=== PATIENT | female | born 1990 | race Asian ===

== ENCOUNTER 2023-08-30 19:47 | Emergency (ER) | payer SELFPAY ==
--- NOTE | ~2023-08-30 | XR_ITS ---
EXAMINATION: XR CHEST CLINICAL INFORMATION: Shortness of breath COMPARISON: None available. TECHNIQUE: Frontal view of the chest was obtained. FINDINGS: No significant abnormality is noted involving the heart, lungs, mediastinum, bony thorax or soft tissues. XR/XR chest 1V IMPRESSION: Unremarkable examination.
--- NOTE | 2023-08-30 19:54 | ECG_ITS ---
Test Reason : LEFT ARM PAIN Blood Pressure : / mmHG Vent. Rate : 095 BPM Atrial Rate : 095 BPM P-R Int : 150 ms QRS Dur : 086 ms QT Int : 368 ms P-R-T Axes : 054 014 020 degrees QTc Int : 462 ms Normal sinus rhythm Normal ECG No previous ECGs available Referred By: Osvaldo Ibarra Electronically Signed By:SANTY KERR MD
[2023-08-30 19:55] VITALS: BP 157/95; PULSE 90; RESP 18; TEMP 37.3; O2SAT 98; BMI 34.4
--- NOTE | 2023-08-30 19:55 | ED_ITS ---
HPI - General Adult General Chief complaint: General Medical Stated complaint: LT arm pain Time Seen by Provider: 08/30/23 22:01 Source: patient Mode of arrival: ambulatory Limitations: no limitations History of Present Illness HPI narrative: Patient with strong family history of hypertension but patient does not have any history of hypertension does have increased stress lately with anxiety drinks increased amount of caffeine patient felt exhausted checked her blood pressure at home which was 157/115 also had same time left-sided headache with light sensitivity no headache at this time patient also had some left-sided arm worried about blood pressure and heart problems. On arrival patient's blood pressure in the ED was 157/95 repeat blood pressure 138/88 pulse rate of 80 Related Data Allergies Allergy/AdvReac Type Severity Reaction Status Date / Time No Known Allergies Allergy Verified 08/30/23 19:54 Review of Systems 2 Review of Systems: Yes all other systems are reviewed and are negative [facility] Social History Social History Smoked in Last 30 Days: No Use of substances other than those prescribed or required for medical reasons: No Advance Directives: No Advance Directives Information Provided: Yes Patient : No Physical Exam ED Vital Signs: Vital Signs - 24 hr 08/30/23 19:55 08/30/23 21:57 Temperature 99.2 F 97.9 F Pulse Rate 90 80 Respiratory Rate 18 14 Blood Pressure 157/95 H 138/88 Pulse Oximetry 98 97 Oxygen Delivery Method Room Air Room Air BMI result Body Mass Index 34.4 Appearance: Alert. Oriented X3. No acute distress. Eyes: PERRLA, No Nystagmus ENT: Pharynx normal. Oral Mucosa moist Neck: Normal inspection. Neck supple. CVS: Normal heart rate and rhythm. Pulses normal. Respiratory: No respiratory distress. Equal air entry bilateral, no wheezing/rales/rhonchi Abdomen: Soft and nontender. Bowel sounds are present, no mass palpable, no CVA tenderness Skin: Skin warm and dry. Normal skin color. Normal skin turgor. Extremities: No lower extremity edema. No calf tenderness Neuro: Oriented X 3. No motor deficit. No sensory deficit.No cerebellar signs , cranial nerves II-XII intact Course Course Course Narrative: This is an RME: Additional HPI, ROS, PE not included below will be deferred to primary provider. 33 year old female presents w/ left arm pain intermittently since arm pain is accompanied by high blood pressure ( diastolic pressure of 115). Intermittent cp sub sternal and sob w/ exertion. Family hx of HTN, MIs ( mom) Plan- ekg, labs, Medical Decision Making Medical Decision Making [facility] Narrative: Patient with transient hypertension secondary to caffeine intake and headache from migraine which has improved. Patient does have strong family history of hypertension her parents advised to keep an eye on blood pressure to relax and decrease the caffeine intake and decrease the salt intake patient advised to follow with PCP patient felt short of breath with lungs clear chest x-ray negative D-dimer negative for PE Differential Diagnosis Differential Diagnoses: The differential diagnosis associated with the presentation includes Migraine headache/ACS/hypertension/anxiety/caffeine side effect/as above Lab Data [facility] Lab Attestation statement: I reviewed the patient's lab results. 08/30/23 20:05 08/30/23 20:05 Labs: Lab Results 08/30/23 Range/Units 20:05 WBC 10.9 H (4.8-10.8) X10*3/uL RBC 4.97 (4.20-5.50) X10*6/uL Hgb 12.7 (12.0-16.0) g/dl Hct 39.3 (37.0-47.0) % MCV 79.1 L (80.0-98.0) fL MCH 25.6 L (27.0-33.0) pg MCHC 32.3 (31.0-35.0) g/dl RDW 14.7 (11.0-16.0) % Plt Count 289 (160-400) X10*3/uL MPV 10.6 (9.4-12.3) fL Immature Gran % (Auto) 0.3 (0.0-0.4) % Neut % (Auto) 67.6 (45-73) % Lymph % (Auto) 26.4 (20-40) % Nuckolls % (Auto) 3.9 (2-11) % Eos % (Auto) 1.3 (0-4) % Baso % (Auto) 0.5 (0-2) % Lymph # (Auto) 2.9 (1.2-4.9) X10*3/uL Nuckolls # (Auto) 0.4 (0.1-1.2) X10*3/uL Eos # (Auto) 0.1 (0.0-0.4) X10*3/uL Baso # (Auto) 0.1 (0.0-0.2) X10*3/uL Abs Immat Gran (auto) 0.03 (0.00-0.03) X10*3/uL Absolute Neuts (auto) 7.4 (2.0-8.3) x10*3/uL Absolute Nucleated RBC 0.000 (0.0-0.012) X10*3/uL Nucleated RBC % (auto) 0.0 (0.0-0.2) /100WBC PT 11.3 (11.1-13.3) SEC INR 0.9 (0.9-1.1) D-Dimer High Sensitivty < 150 NG/ML Sodium 138 (135-145) mmol/L Potassium 3.7 (3.3-5.1) mmol/L Chloride 105 (96-108) mmol/L Carbon Dioxide 24 (22-29) mmol/L Anion Gap 13 (12-20) BUN 10 (9-16) mg/dL Creatinine 0.76 (0.5-1.4) mg/dL Estim Creat Clear Calc 96.6 Estimated GFR > 60 Random Glucose 91 (60-115) mg/dL Calcium 9.6 (8.4-10.2) mg/dL Magnesium 2.1 (1.6-2.6) mg/dL Total Bilirubin 0.2 (0.0-1.0) mg/dL AST 17 (5-31) U/L ALT 14 (0-31) U/L Alkaline Phosphatase 61 (39-117) U/L Troponin I High Sens < 2.7 (<3.5-17.0) ng/L B-Natriuretic Peptide 13 (<100) pg/mL Total Protein 7.2 (6.5-8.0) g/dL Albumin 4.3 (3.5-5.0) g/dL TSH 1.23 (0.32-4.0) uIU/mL Independent Interpretation I performed an independent interpretation of an: EKG Interpretation: Number sinus rhythm heart rate 95 beats per minute normal interval normal axis no acute ST T wave changes no acute ischemia Discharge Plan Discharge Clinical Impression: Transient hypertension Patient Disposition: Home, Self-Care Instructions: How to Take a Blood Pressure (ED), Anxiety (ED) Additional Instructions: Your blood pressure is normal today but you are at high risk to have hypertension Elevated blood pressure likely from migraine headache/caffeine intake/anxiety Check blood pressure daily it should be less than 135/85 Follow-up with PCP if any concerns Decrease caffeine and salt intake Interventions: ED Discharge Assessment Last Done: 08/30/23 22:59
[2023-08-30 20:13] LABS: MANUAL DIFF FLAG NO
[2023-08-30 20:15] LABS: Basophils Absolute Auto 0.1 X10*3/uL (0.0-0.2); Basophils Percent Auto 0.5 % (0-2); Eosinophils Absolute Auto 0.1 X10*3/uL (0.0-0.4); Eosinophils Percent Auto 1.3 % (0-4); Hematocrit 39.3 % (37.0-47.0); Hemoglobin 12.7 g/dl (12.0-16.0); Imm Gran Abs Auto 0.03 X10*3/uL (0.00-0.03); Imm Gran Pct Auto 0.3 % (0.0-0.4); Lymphocytes Absolute Auto 2.9 X10*3/uL (1.2-4.9); Lymphocytes Percent Auto 26.4 % (20-40); Mean Corpuscular HGB Conc 32.3 g/dl (31.0-35.0); Mean Corpuscular Hemoglobin 25.6 pg (27.0-33.0); Mean Corpuscular Volume 79.1 fL (80.0-98.0); Mean Platelet Volume 10.6 fL (9.4-12.3); Monocytes Absolute Auto 0.4 X10*3/uL (0.1-1.2); Monocytes Percent Auto 3.9 % (2-11); Neutrophils Absolute Auto 7.4 x10*3/uL (2.0-8.3); Neutrophils Percent Auto 67.6 % (45-73); Platelet Count 289 X10*3/uL (160-400); Red Blood Count 4.97 X10*6/uL (4.20-5.50); Red Cell Distribution Width 14.7 % (11.0-16.0); White Blood Count 10.9 X10*3/uL (4.8-10.8)
[2023-08-30 20:20] LABS: INTERNATIONAL NORM RATIO 0.9 (0.9-1.1); Prothrombin Time 11.3 SEC (11.1-13.3)
[2023-08-30 20:22] LABS: D Dimer High Sensitivity < 150 NG/ML
[2023-08-30 20:44] LABS: Alanine Aminotransferase 14 U/L (0-31); Albumin Level 4.3 g/dL (3.5-5.0); Alkaline Phosphatase 61 U/L (39-117); Anion Gap 13 (12-20); Aspartate Amino Transferase 17 U/L (5-31); Bilirubin Total 0.2 mg/dL (0.0-1.0); Blood Urea Nitrogen 10 mg/dL (9-16); Calcium 9.6 mg/dL (8.4-10.2); Carbon Dioxide 24 mmol/L (22-29); Chloride 105 mmol/L (96-108); Creatinine Clr Calc Pharmacy 96.6; Estimated Glomerular Filt Rate > 60; Glucose Random 91 mg/dL (60-115); Magnesium 2.1 mg/dL (1.6-2.6); Potassium 3.7 mmol/L (3.3-5.1); Sodium 138 mmol/L (135-145); Total Protein 7.2 g/dL (6.5-8.0)
[2023-08-30 20:48] LABS: B Type Natriuretic Peptide 13 pg/mL (<100)
[2023-08-30 20:55] LABS: Troponin-I High Sensitivity < 2.7 ng/L (<3.5-17.0)
[2023-08-30 21:05] LABS: TSH reflex Free T4 1.23 uIU/mL (0.32-4.0)
[2023-08-30 21:57] VITALS: BP 138/88; PULSE 80; RESP 14; TEMP 36.6; O2SAT 97
== END 2023-08-30 23:27 | disposition home or self-care (01) ==
LOC: HO.ED 23:06
PROVIDERS: Physician Assistant; Emergency Provider Internal Medicine
DX: R03.0 Elevated blood-pressure reading, without diagnosis of hypertension (principal); M79.602 Pain in left arm; F41.1 Generalized anxiety disorder; R06.02 Shortness of breath; F43.0 Acute stress reaction; R51.9 Headache, unspecified; Z79.899 Other long term (current) drug therapy
CPT/HCPCS: 36415; 71045; 80053; 83735; 83880; 84443; 84484; 85025; 85379; 85610; 93005; 99284